=== PATIENT | male | born 1980 | race African-American/Black ===

== ENCOUNTER 2018-12-07 07:54 | Day surgery (SDC) | payer OTHER ==
[2018-12-05 13:01] VITALS: BMI 40.1
[2018-12-07] MEDS ORDERED: MIDAZOLAM HCL 2 MG/2 ML SINGLE DOSE VIAL ONE (10:23)
[2018-12-07] MEDS ORDERED: DEXAMETHASONE SOD PHOSPHATE 4 MG/1 ML VIAL ONE (10:23)
[2018-12-07] MEDS ORDERED: ONDANSETRON 4 MG/2 ML VIAL ONE (10:23)
[2018-12-07] MEDS ORDERED: SODIUM CHLORIDE 0.9% P/F 10 ML VIAL IJ ONE (10:23)
[2018-12-07] MEDS ORDERED: PROPOFOL 20 ML ONE (10:23)
[2018-12-07] MEDS ORDERED: ceFAZolin SODIUM 1 GM VIAL ONE (10:23)
[2018-12-07] MEDS ORDERED: SUCCINYLCHOLINE CHLORIDE 200 MG/10 ML VIAL ONE (10:23)
[2018-12-07] MEDS ORDERED: MORPHINE SULFATE 10 MG/1 ML *VIAL ONE (10:29)
[2018-12-07] MEDS ORDERED: BUPIVACAINE HCL/PF 0.5% (5MG/ML) 10 ML VIAL ONE (10:46)
[2018-12-07] MEDS ORDERED: oxyCODONE HCL 5 MG TABLET PO PRN ×2 (10:53)
[2018-12-07] MEDS ORDERED: ONDANSETRON 4 MG/2 ML VIAL IVPUSH PRN (10:53)
[2018-12-07] MEDS ORDERED: LACTATED RINGERS SOLUTION 1,000 ML IV SCH (11:00)
--- NOTE | 2018-12-07 12:17 | OP ---
DATE OF OPERATION: 12/07/2018 PREOPERATIVE DIAGNOSIS: Torn medial meniscus to the right knee. 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 PROCEDURE PERFORMED: Operative arthroscopy of the right knee with partial medial and lateral meniscectomies, chondroplasty, synovectomy, joint debridement, and microfracture technique for local stem cell recruitment for osteochondral defect. SURGEON: Rosa Dodd MD SHEET [employer]AL FOREMAN: Gordon Milligan ANESTHESIOLOGIST: Toribio Lazar MD ANESTHESIA: General anesthesia. PROCEDURE: Consisted of the patient being brought into the operating room and gently transferred from the stretcher to the OR table with all bony prominences well padded. The right leg was prepared and draped in sterile fashion. The patient was given intravenous antibiotics and copious irrigation throughout the procedure to minimize the risk for infection. A complete [id number] discussion was conducted with the appropriate time-out, appropriate time-out discussion following sterile preparation and draping for the right leg. Leg was exsanguinated using a sterile Esmarch bandage, and tourniquet was inflated to 350 mmHg. Suprapatellar and medial and lateral joint line portals were used to introduce the arthroscope and arthroscopic instruments. The knee was examined. There was noted to be hypertrophic synovium in the suprapatellar pouch, and partial synovectomy was performed. Medial and lateral gutters without plica or loose bodies. Medial meniscus was found to have a tear at the posterior horn, and this was dissected using a shaver and radiofrequency wand. There was noted to be an osteochondral defect on the medial femoral condyle, and this was debrided, and bony awl with appropriate angle and shaper used to create a microfracture pattern to allow local stem cells to be recruited. Intercondylar region of the calf joint debrided. Lateral meniscus was found to have a tear of the posterior horn, and this was resected using shaver and radiofrequency wand. There was also noted to be a loose body in the lateral joint space, and this was removed. Loose body removal was also then performed. The knee joint was then copiously irrigated with sterile saline irrigant. The wounds were closed with 4-0 undyed Vicryl. We applied Steri-Strips, Xeroform, 4x4s, combine, sterile Webril, MILES bandage, and knee immobilizer. The patient was then gently awoke from anesthesia without incident and transferred from the operating room to the recovery room in satisfactory condition. There were no intraoperative complications. ROSA DODD M.D. [id number]
[2018-12-07 12:40] VITALS: PULSE 56; TEMP 98
[2018-12-07] MEDS ORDERED: oxyCODONE HCL 5 MG TABLET ONE (12:57)
[2018-12-07 14:00] VITALS: BP 128/74
== END 2018-12-07 13:35 | disposition home or self-care (01) ==
LOC: FASU 07:54
PROVIDERS: ATTEND Orthopaedic Surgery
PROC: 0SBC4ZZ Excision of Right Knee Joint, Percutaneous Endoscopic Approach (ICD-10-PCS; 2018-12-07)
PROC: 0SBC4ZZ Excision of Right Knee Joint, Percutaneous Endoscopic Approach (ICD-10-PCS; 2018-12-07)
PROC: 0SBC4ZZ Excision of Right Knee Joint, Percutaneous Endoscopic Approach (ICD-10-PCS; 2018-12-07)
PROC: 0SBC4ZZ Excision of Right Knee Joint, Percutaneous Endoscopic Approach (ICD-10-PCS; principal; 2018-12-07 10:35)
DX: S83.241A Other tear of medial meniscus, current injury, right knee, initial encounter (principal); S83.281A Other tear of lateral meniscus, current injury, right knee, initial encounter; M22.41 Chondromalacia patellae, right knee; M67.261 Synovial hypertrophy, not elsewhere classified, right lower leg; M25.861 Other specified joint disorders, right knee; M21.861 Other specified acquired deformities of right lower leg; X58.XXXA Exposure to other specified factors, initial encounter; Y93.9 Activity, unspecified; Y92.9 Unspecified place or not applicable
CPT/HCPCS: 94760